=== PATIENT | female | born 1990 | race Two or more races ===

== ENCOUNTER 2017-09-25 15:13 | Emergency (ER) | payer MEDICAID, OTHER ==
[~2017-09-25] VITALS: Ht 165.1 cm; Wt 62.0 kg
[2017-09-25] MEDS ORDERED: CEFTRIAXONE SODIUM 250 MG/VIAL IM ONE (19:00)
[2017-09-25] MEDS ORDERED: AZITHROMYCIN 500 MG TABLET PO ONE (19:00)
[2017-09-25 19:43] LABS: CLARITY URINE CLOUDY (CLEAR); COLOR URINE YELLOW (YELLOW); KETONES URINE NEGATIVE (NEGATIVE); LEUKOCYTE ESTERASE URINE 2+ (NEGATIVE); NITRITE URINE NEGATIVE (NEGATIVE); OCCULT BLOOD URINE NEGATIVE (NEGATIVE); PH URINE 7.5 (4.5-8.0); PROTEIN URINE NEGATIVE (NEGATIVE); SPECIFIC GRAVITY URINE 1.022 (1.005-1.030)
[2017-09-25 22:09] VITALS: BP 114/85
[2017-09-28 14:20] LABS: CHLAMYDIA TRACHOMATIS NAA Negative (Negative); NEISSERIA GONORRHOEAE NAA Negative (Negative)
== END 2017-09-25 22:07 | disposition home or self-care (01) ==
LOC: ER 15:13
DX: N72 Inflammatory disease of cervix uteri (principal); R10.2 Pelvic and perineal pain; K31.819 Angiodysplasia of stomach and duodenum without bleeding
CPT/HCPCS: 81003; 81025; 87491; 87591; 96372; 99284; J0696; Z7610

== ENCOUNTER 2021-04-14 15:50 | Emergency (ER) | payer OTHER ==
[~2021-04-14] VITALS: Ht 152.4 cm; Wt 52.0 kg
[2021-04-14 16:15] VITALS: BP 114/83
[2021-04-14] MEDS ORDERED: LORAZEPAM 0.5MG TABLET PO ONE (16:45)
[2021-04-14] MEDS ORDERED: KETOROLAC 60MG/2ML VIAL IM ONE (16:45)
[2021-04-14] MEDS ORDERED: LORA-249 MT (18:16)
== END 2021-04-14 18:33 | disposition home or self-care (01) ==
LOC: ER 15:50
DX: M54.9 Dorsalgia, unspecified (principal); D64.9 Anemia, unspecified; E03.9 Hypothyroidism, unspecified
CPT/HCPCS: 71046; 72100; 96372; 99284; J1885